=== PATIENT | male | born 1975 | race Caucasian/White ===

== ENCOUNTER 2016-07-11 16:46 | Emergency (ER) ==
[2016-07-11 16:52] VITALS: BP 158/105
[2016-07-11 17:44] LABS: URINE SOURCE CLEAN CATCH
[2016-07-11 17:48] LABS: BILIRUBIN URINE NEGATIVE (NEGATIVE); BLOOD URINE NEGATIVE (NEGATIVE); CLARITY VERY CLOUDY (CLEAR); COLOR YELLOW; GLUCOSE URINE NEGATIVE (NEGATIVE); LEUKOCYTES URINE 1+ (NEGATIVE); NITRITE URINE NEGATIVE (NEGATIVE); PROTEIN URINE NEGATIVE (NEGATIVE); SP GRAVITY URINE 1.015; UROBILINOGEN URINE NORMAL
[2016-07-11 18:01] LABS: URINE WBC <10 /HPF (<10)
[2016-07-11 18:02] LABS: URINE CAST NONE SEEN /LPF; URINE CRYSTAL NONE SEEN /HPF; URINE CULTURE PL NEEDED? YES; URINE EPITHELIAL CELLS <10 /HPF (<10)
--- NOTE | 2016-07-11 18:59 | PROVIDER DOCUMENTATION ---
HPI-General Adult - General Chief Complaint: Cold Symptoms Stated Complaint: COLD SX/N/D Time Seen by Provider: 07/11/16 18:54 Source: patient Allergies/Adverse Reactions: Patient Allergies Allergy/AdvReac Type Severity Reaction Status Date / Time Penicillins Allergy Unknown Verified 07/11/16 16:53 Home Medications: Home Medication List Medication Instructions Recorded Confirmed Last Taken Type Ketorolac [Toradol] 10 mg PO Q6H PRN PRN #20 tablet 07/11/16 Unknown Rx Levofloxacin [Levaquin] 500 mg PO DAILY #10 tablet 07/11/16 Unknown Rx Prednisone 20 mg PO BID #10 tablet 07/11/16 Unknown Rx - History of Present Illness -Gen Adult Nature of Presenting Problems: 40 year old male presents to the ER with complaint of fever, diarrhea, headache , lower back pain and dysruia x 1 day. Location of Pain/Injury: reports: face, back Onset/Duration: reports: 24 hours ago Timing: reports: still present Review of Systems - Adult - REVIEW OF SYSTEMS - ADULT Constitutional: reports: fever. denies: chills Eyes: reports: no symptoms reported Ears, Nose, Mouth & Throat: reports: no symptoms reported Cardiovascular: reports: no symptoms reported Respiratory: reports: no symptoms reported Gastrointestinal: reports: diarrhea. denies: nausea Genitourinary: reports: dysuria. denies: discharge Musculoskeletal: reports: back pain. denies: bone pain Integumentary: reports: no symptoms reported Neurological: reports: no symptoms reported Psychiatric: reports: no symptoms reported Endocrine: reports: no symptoms reported Hematologic/Lymphatic: reports: no symptoms reported Allergic/Immunologic: reports: no symptoms reported All Other Systems: Reviewed and Negative Past History - Adult - PAST MEDICAL HISTORY-ADULT Review of Records: reports: Nursing Assessment Review, Medications Reviewed - IMMUNIZATION STATUS Childhood Immunizations: See Nurse Assessment Flu Vaccine: See Nurse Assessment Physical Exam-General - CONSTITUTIONAL General Appearance: alert, no apparent distress - EYES Eyes: PERRL/EOMI, pink conjunctivae - HEAD, EARS, NOSE, MOUTH & THROAT HENMT: normocephalic/atraumatic, moist mucous membranes - NECK Neck: supple, normal inspection - RESPIRATORY Respiratory: lungs clear, no respiratory distress - CARDIOVASCULAR Cardiovascular: normal peripheral pulses, regular rate, rhythm - MUSCULOSKELETAL Back Exam: no CVA tenderness, no vertebral tenderness Extremity: normal gait, normal inspection - SKIN Integumentary: normal color, warm/dry - NEUROLOGIC Neurologic: grossly normal, no motor/sensory deficits - PSYCHIATRIC Psych/Mental Status: normal mood/affect, normal thought content, normal thought process, oriented x 3 Departure - Departure Time of Disposition Order: 18:58 DIAGNOSIS: URI (upper respiratory infection) Qualifiers: URI type: unspecified URI Qualified Code(s): J06.9 - Acute upper respiratory infection, unspecified Disposition: HOME 01 Certified Medical Emergency: Emergent Condition: Stable Additional Instructions: ED Follow Up Instructions: You have been treated by a care provider in the Emergency Department. These instructions are being provided to you so you can have an understanding of how to care for yourself upon discharge. Upon discharge from the Emergency Department, you are responsible for making arrangements for follow-up care by a physician of your choice. Take all prescribed medications as directed. Return to the Emergency Department immediately for any new or worsening symptoms. You may call the Physician Referral phone number at [phone] to obtain a list of Physicians who are taking new patients. Prescriptions: Levofloxacin [Levaquin] 500 mg PO DAILY #10 tablet Prednisone 20 mg PO BID #10 tablet Ketorolac [Toradol] 10 mg PO Q6H PRN PRN #20 tablet PRN Reason: Pain Referrals: Gabriel Dos Santos MD [STAFF PHYSICIAN] - Forms: Return to School/Parent Work Instructions: Upper Respiratory Infection, Adult, [id number], Levofloxacin tablets, Ketorolac tablets, Prednisone tablets Attestation - Scribe Verification/Attestation Scribe:: Mable Nixon Acting as Scribe for:: Kirit Mark Scribe documention review:: This chart was documented by a scribe and accurately reflects the service the provider performed and the decisions made by the provider.
== END 2016-07-11 19:13 | disposition home or self-care (01) ==
LOC: P.ED 16:46
DX: J06.9 Acute upper respiratory infection, unspecified (principal); R50.9 Fever, unspecified; R19.7 Diarrhea, unspecified; R51 Headache; M54.5 Low back pain; R30.0 Dysuria; M54.9 Dorsalgia, unspecified
CPT/HCPCS: 81001; 87088; 87804; 99283

== ENCOUNTER 2016-07-12 09:00 | Emergency (ER) ==
[2016-07-12 09:57] LABS: MANUAL DIFF NEEDED? NO
[2016-07-12 09:59] LABS: BASO% 0.2 % (0.0-0.8); EOS# 0.03 X1000 (0.0-0.7); EOS% 0.3 % (0.0-10.0); HEMATOCRIT 54.8 % (42.0-52.0); HEMOGLOBIN 18.5 g/dL (14.0-18.0); IMM GRAN# 0.02 X1000 (0.0-0.04); IMM GRAN% 0.2 % (0.0-0.5); LYMPH# 1.53 X1000 (1.2-3.4); LYMPH% 12.9 % (20.5-51.1); MCH 30.9 PG (27-31); MCHC 33.8 g/dL (33-37); MCV 91.5 FL (81-99); MONO% 9.3 % (1.7-9.3); MPV 11.3 FL (7.4-10.4); NEUT% 77.1 % (42.2-75.2); PLT 207 X1000 (130-400); RBC 5.99 XMIL (4.7-6.1)
--- NOTE | 2016-07-12 10:08 | PROVIDER DOCUMENTATION ---
HPI-Abdominal Pain/GI Problem - General Source: patient - History of Present Illness-ABD Nature of Presenting Problems: Pt is a 40 yom who came to the ED with a cc of N/V/D. Pt reports he has been having these symptoms since last night. Pt reports he is unable to keep anything down and is also having urinary retention. Abdominal Pain Onset Location: reports: RLQ Pain Radiation: reports: flank (right) Quality of Pain: reports: cramping Severity in ED: reports: mild Onset/Duration: reports: last night Timing: reports: still present Activities at Onset: reports: none Exposure to sick contacts?: No Modifying Factors: improves with: defecating, eating, vomiting Associated Symptoms: reports: diarrhea, nausea, vomiting Last BM: unsure Dark Stools Present?: reports: none noticed Rectal Bleeding: reports: none Rectal Pain: reports: none Bruising or Bleeding Gums?: No Similar Symptoms Previously?: No Recently seen or treated by another doctor?: No <Mikki Morrow - Last Filed: 07/12/16 10:02> <Peter Matute - Last Filed: 07/12/16 11:07> <Tammie Nunez - Last Filed: 07/12/16 12:55> - General Chief Complaint: Flank Pain Stated Complaint: RIGHT SIDE PAIN,DIARRHEA Time Seen by Provider: 07/12/16 09:28 Allergies/Adverse Reactions: Patient Allergies Allergy/AdvReac Type Severity Reaction Status Date / Time Penicillins Allergy Unknown Verified 07/11/16 16:53 Home Medications: Home Medication List Medication Instructions Recorded Confirmed Last Taken Type Ciprofloxacin HCl [Cipro] 500 mg PO BID #14 tablet 07/12/16 Unknown Rx Ondansetron [Zofran] 4 mg PO Q6H PRN PRN #15 tablet 07/12/16 Unknown Rx Review of Systems - Adult - REVIEW OF SYSTEMS - ADULT Constitutional: reports: chills, fever. denies: fatique, weight gain Eyes: reports: no symptoms reported Ears, Nose, Mouth & Throat: reports: no symptoms reported Cardiovascular: reports: no symptoms reported Respiratory: reports: no symptoms reported Gastrointestinal: reports: abdominal pain (RLQ), diarrhea, nausea, vomiting. denies: hematemesis, frequent heartburn, rectal bleeding Genitourinary: reports: no symptoms reported Musculoskeletal: denies: frequent leg cramps, joint swelling Integumentary: reports: no symptoms reported Neurological: reports: no symptoms reported Psychiatric: reports: no symptoms reported Endocrine: reports: no symptoms reported Hematologic/Lymphatic: reports: no symptoms reported Allergic/Immunologic: reports: no symptoms reported All Other Systems: Reviewed and Negative <Mikki Morrow - Last Filed: 07/12/16 10:02> Past History - Adult - PAST MEDICAL HISTORY-ADULT Review of Records: reports: Old Records Reviewed, Nursing Assessment Review Major Childhood Illnesses: reports: denies history Cardiovascular: reports: denies history Respiratory: reports: denies history Gastrointestinal: reports: denies history Obstetrical/Gynecological: reports: denies history Genitourinary: reports: denies history Musculoskeletal: reports: denies history Neurological: reports: denies history Endocrine/Immune: reports: denies history Other Conditions: reports: denies history - IMMUNIZATION STATUS Childhood Immunizations: See Nurse Assessment Flu Vaccine: See Nurse Assessment - FAMILY HISTORY Family History: reviewed, not pertinent <Mikki Morrow - Last Filed: 07/12/16 10:02> Physical Exam-General - PHYSICAL EXAM-ADULT Initial Vital Signs Reviewed: Yes - CONSTITUTIONAL General Appearance: alert - EYES Eyes: PERRL/EOMI, pink conjunctivae - HEAD, EARS, NOSE, MOUTH & THROAT HENMT: normocephalic/atraumatic, moist mucous membranes, normal ENT inspection, TMs normal, pharynx normal - NECK Neck: non-tender - RESPIRATORY Respiratory: chest non-tender, lungs clear - CARDIOVASCULAR Cardiovascular: normal peripheral pulses, regular rate, rhythm - GASTROINTESTINAL (ABDOMEN) Abdominal Exam: normal bowel sounds, tenderness (RLQ and Right flank pain) - MUSCULOSKELETAL Back Exam: normal inspection Extremity: normal range of motion - SKIN Integumentary: normal color, normal turgor - NEUROLOGIC Neurologic: grossly normal - PSYCHIATRIC Psych/Mental Status: normal mood/affect, normal thought content, normal thought process, oriented x 3 <Mikki Morrow - Last Filed: 07/12/16 10:02> Progress - PLAN OF CARE/RESULTS Progress/Plan/Lab Results: Vital Signs - 24 hr 07/12/16 09:15 Temperature 98.3 F Pulse Rate 104 H Respiratory 18 Rate Blood Pressure 165/92 O2 Sat by Pulse 100 Oximetry Orders Category Date Time Status NPO Diet 07/12/16 09:29 Active AMYLASE [CHEM] Stat Lab 07/12/16 09:44 Received CBC WITH ELECTRONIC DIFF [HEME] Stat Lab 07/12/16 09:44 Completed COMPREHENSIVE METABOLIC PANEL [CHEM] Stat Lab 07/12/16 09:44 Received LIPASE [CHEM] Stat Lab 07/12/16 09:44 Received UA NIMS W/REFLEX CULT [URINALYSIS] Stat Lab 07/12/16 09:19 Uncollected Laboratory Tests 07/12/16 09:44 WBC 11.85 H RBC 5.99 Hgb 18.5 H Hct 54.8 H MCV 91.5 MCH 30.9 MCHC 33.8 RDW Std Deviation 13.5 Plt Count 207 MPV 11.3 H Immature Gran % (Auto) 0.2 Neut % (Auto) 77.1 H Lymph % (Auto) 12.9 L [place] % (Auto) 9.3 Eos % (Auto) 0.3 Baso % (Auto) 0.2 Immature Gran # (Auto) 0.02 Neut # (Auto) 9.15 H Lymph # (Auto) 1.53 [place] # (Auto) 1.10 H Eos # (Auto) 0.03 Baso # (Auto) 0.02 <Mikki Morrow - Last Filed: 07/12/16 10:02> - CHANGE OF SHIFT REPORT (ED Provider) Report Given and Care Transferred to:: Dr. Nunez (ER MD Fellow) Time of Transfer: 11:07 Items Pending: Labs, CT/MRI Results Tentative Impression of Patient: R FLANK PAIN, CONSIDER GASTROENTERITIS, APPENDICITIS, DIVERTICULITIS <Peter Matute - Last Filed: 07/12/16 11:07> Departure <Mikki Morrow - Last Filed: 07/12/16 10:02> <Peter Matute - Last Filed: 07/12/16 11:07> - Departure Time of Disposition Order: 12:51 Certified Medical Emergency: Emergent <Tammie Nunez - Last Filed: 07/12/16 12:55> - Departure DIAGNOSIS: Gastroenteritis Disposition: HOME 01 Condition: Stable Additional Instructions: Rest. Clear liquid diet- like gatorade, broth. Gradually increase diet if pain resolved and tolerating fluids. Take zofran if needed for nausea and vomiting. Take cipro antibiotics twice a day for 1 week. Follow up with Dr if not better 2 days. Return to emergency department if unable to keep down fluids or if worsening abdominal pain. No work for 2 days ED Follow Up Instructions: You have been treated by a care provider in the Emergency Department. These instructions are being provided to you so you can have an understanding of how to care for yourself upon discharge. Upon discharge from the Emergency Department, you are responsible for making arrangements for follow-up care by a physician of your choice. Take all prescribed medications as directed. Return to the Emergency Department immediately for any new or worsening symptoms. You may call the Physician Referral phone number at [phone] to obtain a list of Physicians who are taking new patients. Prescriptions: Ciprofloxacin HCl [Cipro] 500 mg PO BID #14 tablet Ondansetron [Zofran] 4 mg PO Q6H PRN PRN #15 tablet PRN Reason: Vomiting Attestation - Scribe Verification/Attestation Scribe:: Mikki Morrow Acting as Scribe for:: Peter Matute Scribe documention review:: This chart was documented by a scribe and accurately reflects the service the provider performed and the decisions made by the provider. <Mikki Morrow - Last Filed: 07/12/16 10:02> - Physician/ TROY Attestation Patient care was provided by Advanced Practice Provider:: Yes Advanced Practice Provider:: Peter Matute Advanced Practice Provider documentation review:: The Mid-level provider documentation, treatment plan and medical decision making was reviewed by the physician who agrees with all treatment and medical decision making by the MLP. The physician spent face to face time with patient:: Yes Advanced Practice Provider documentation review:: The physician spent face to face time with this patient and agrees with all MLP documentation, treatment, and medical decision making by the MLP. See provider notes for further information. <Peter Matute - Last Filed: 07/12/16 11:07> Physician Attestation - Physician Attestation I, the provider, attest to the following statement:: Peter Matute Physician documentation Attestation:: This documentation recorded by the scribe accurately reflects the service I personally performed and the decisions made by me. <Peter Matute - Last Filed: 07/12/16 11:07>
[2016-07-12] MEDS ORDERED: NS 1,000 ML IV ONE (10:13)
[2016-07-12 10:20] LABS: AGAP 14; ALBUMIN 4.6 g/dL (3.5-5.0); ALKALINE PHOSPHATASE 109 U/L (32-122); AMYLASE 40 U/L (20-200); BUN 10 mg/dL (8-22); CALCIUM 9.1 mg/dL (8.8-10.2); CHLORIDE 101 mmol/L (98-107); COSMO 277; GOT 19 U/L (10-34); GPT 23 U/L (10-44); LIPASE 23 U/L (13-60); POTASSIUM 4.2 mmol/L (3.5-5.1); SODIUM 138 mmol/L (136-145); TCO2 23 mmol/L (25-35); TOTAL BILIRUBIN 0.44 mg/dL (0.20-1.00)
[2016-07-12 10:21] LABS: URINE CULTURE NEEDED? NO; URINE MICRO REVIEW NEEDED? NO; URINE SOURCE CLEAN CATCH
[2016-07-12] MEDS ORDERED: ZOFRAN IV ONE (10:21)
[2016-07-12 10:27] LABS: BILIRUBIN URINE NEGATIVE (NEGATIVE); BLOOD URINE TRACE (NEGATIVE); COLOR ORANGE; GLUCOSE URINE NEGATIVE (NEGATIVE); LEUKOCYTES URINE NEGATIVE (NEGATIVE); NITRITE URINE NEGATIVE (NEGATIVE); PROTEIN URINE 100 mg/dL (NEGATIVE); SP GRAVITY URINE 1.028; TURBIDITY URINE TURBID (CLEAR); UROBILINOGEN URINE NORMAL (NORMAL)
[2016-07-12 10:28] LABS: UR EPITHELIAL CELLS <10 /HPF (<10); URINE BACTERIA NEGATIVE /HPF; URINE RBC <10 /HPF (<10); URINE WBC <10 /HPF (<10)
[2016-07-12 12:27] VITALS: BP 149/95
--- NOTE | 2016-07-12 12:45 | Diag Imaging Result Document ---
PROCEDURE NAME: CT ABD/PELVIS W/ IV CONT ONLY - 07/12/2016 CT ABDOMEN AND PELVIS WITH IV CONTRAST: COMPARISON: None available. FINDINGS: There are multiple loops of small bowel exhibiting mild wall thickening and there are air-fluid levels. This effects essentially the entire small bowel. This is consistent with nonspecific enteritis, probably infectious or inflammatory. There is no evidence of bowel obstruction, however. The appendix is normal. There is liquid stool in the colon and rectum. There are few colonic diverticula, but there is no evidence of diverticulitis. There is trace free fluid layering in the pelvis. The remainder of the solid viscera of the abdomen and pelvis and the remainder of the GI tract is essentially unremarkable. IMPRESSION: 1. Diffuse small-bowel wall thickening consistent with nonspecific enteritis, likely infectious or inflammatory. 2. Other incidental/nonacute findings detailed above. [facility]
== END 2016-07-12 13:11 | disposition home or self-care (01) ==
LOC: ED 09:00
DX: K52.9 Noninfective gastroenteritis and colitis, unspecified (principal); R11.2 Nausea with vomiting, unspecified; R19.7 Diarrhea, unspecified; R33.9 Retention of urine, unspecified; R10.31 Right lower quadrant pain; R10.9 Unspecified abdominal pain; R50.9 Fever, unspecified; R10.813 Right lower quadrant abdominal tenderness; R10.819 Abdominal tenderness, unspecified site
CPT/HCPCS: 36415; 74177; 80053; 81001; 82150; 83690; 85025; 96374; J2405; J7030; Q9967

== ENCOUNTER 2019-08-15 15:14 | Observation (INO) ==
[2019-08-15] MEDS ORDERED: NORFLEX IV ONE (15:28)
[2019-08-15] MEDS ORDERED: NS 500 ML IV ONE (15:29)
[2019-08-15] MEDS ORDERED: BOOSTRIX VACCINE IM ONE (15:30)
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
--- NOTE | 2019-08-15 16:35 | Diag Imaging Result Doc PS360 ---
EXAM: KNEE 3 VIEWS RIGHT INDICATION: TRAUMA TECHNIQUE: 3 views COMPARISON: None. FINDINGS: There is no discrete fracture, dislocation, or significant intrinsic osseous lesion. The visualized joint spaces are essentially unremarkable. The surrounding soft tissues are essentially unremarkable. IMPRESSION: No evidence of acute osseous abnormality. Electronically signed by Peter Mcleod 08/15/2019 4:33 PM
--- NOTE | 2019-08-15 16:35 | Diag Imaging Result Doc PS360 ---
EXAM: SHOULDER-RIGHT INDICATION: TRAUMA TECHNIQUE: 3 views COMPARISON: None. FINDINGS: There is no discrete fracture, dislocation, or significant intrinsic osseous lesion. The visualized joint spaces are essentially unremarkable. The surrounding soft tissues are essentially unremarkable. IMPRESSION: No evidence of acute osseous abnormality. Electronically signed by Peter Mcleod 08/15/2019 4:32 PM
[2019-08-15] MEDS ORDERED: XYLOCAINE 1%/EPI 1:100,000 INJ ONE (16:39)
[2019-08-15 16:43] LABS: BASO# 0.04 X1000 (0.0-0.2); BASO% 0.6 % (0.0-0.8); EOS# 0.37 X1000 (0.0-0.7); EOS% 5.5 % (0.0-10.0); HEMATOCRIT 44.3 % (42.0-52.0); HEMOGLOBIN 14.4 g/dL (14.0-18.0); LYMPH# 1.83 X1000 (1.2-3.4); LYMPH% 27.2 % (20.5-51.1); MCH 29.9 PG (27-31); MCHC 32.5 g/dL (33-37); MCV 91.9 FL (81-99); MONO# 0.52 X1000 (0.11-0.59); MONO% 7.7 % (1.7-9.3); MPV 11.1 FL (7.4-10.4); NEUT# 3.97 X1000 (1.4-6.5); PLT 162 X1000 (130-400); RBC 4.82 XMIL (4.7-6.1); RDW 14.1 % (11.5-14.5); WBC 6.73 X1000 (4.8-10.8)
--- NOTE | 2019-08-15 16:44 | Diag Imaging Result Doc PS360 ---
EXAM: CT HEAD/C-SPINE W/O CONTRAST INDICATION: TRAUMA TECHNIQUE: This exam was performed using automated exposure control, adjustment of mA or kV according to patient size, and/or use of iterative reconstruction technique. COMPARISON: 02/21/2017 FINDINGS: Head: There is no definite acute infarct given the limited sensitivity of CT versus MRI. There is no discrete intracranial mass, mass effect, or intracranial hemorrhage. There is a small laceration at the anterior aspect of the scalp on the left. The calvaria is intact. There is extensive pansinus mucosal disease. This is also seen on the previous study. C-spine: There is degenerative disc disease at C5-6 with marginal osteophyte formation. It is causing mild central canal and left neuroforaminal narrowing that is similar to the previous study. Otherwise, there is no discrete fracture, subluxation, or intrinsic osseous lesion. The surrounding soft tissues are essentially unremarkable. IMPRESSION: 1.No evidence of acute intracranial pathology. 2.Degenerative changes at C5-6 but no evidence of fracture or other definite acute C-spine injury. Electronically signed by Peter Mcleod 08/15/2019 4:42 PM
--- NOTE | 2019-08-15 16:47 | Diag Imaging Result Doc PS360 ---
EXAM: CT THORAX/ABD/PELVIS W/CON INDICATION: TRAUMA TECHNIQUE: This exam was performed using automated exposure control, adjustment of mA or kV according to patient size, and/or use of iterative reconstruction technique. COMPARISON: CT abdomen and pelvis dated 12/09/2017 FINDINGS: CHEST: There is mild dependent atelectasis mainly involving the lower lobes bilaterally. There is a calcified granuloma in the anterior segment of the right upper lobe. The lungs are essentially clear, otherwise. There is no evidence of pulmonary contusion. There is no pleural fluid collection and no pneumothorax. There is no cardiomegaly. There is no abnormal mediastinal fluid collection. There is no evidence of thoracic great vessel injury. The bony structures of the thorax are grossly intact. ABDOMEN/PELVIS: The liver, gallbladder, spleen, pancreas, adrenal glands, kidneys, and urinary bladder are grossly unremarkable. There is no evidence of bowel wall thickening or bowel obstruction. There is no evidence of appendicitis. The remainder of the GI tract is essentially unremarkable. No focal inflammatory changes, free abdominal gas, or free fluid is appreciated. There is no evidence of acute osseous abnormality involving the abdomen or pelvis. IMPRESSION: 1.Mild dependent subsegmental atelectasis mainly involving the lower lung lobes bilaterally. No evidence of acute chest pathology, otherwise. 2.No evidence of acute pathology involving the abdomen or pelvis. Electronically signed by Peter Mcleod 08/15/2019 4:45 PM
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
[2019-08-15 17:09] LABS: AGAP 9; ALB/GLOB RATIO 1.9; ALBUMIN 4.1 g/dL (3.5-5.0); ALKALINE PHOSPHATASE 105 U/L (32-122); BUN 16 mg/dL (8-22); CALCIUM 9.1 mg/dL (8.8-10.2); CHLORIDE 100 mmol/L (98-107); COSMO 274; CREATININE 0.8 mg/dL (0.7-1.2); ESTIMATED GFR > 60; GLUCOSE 106 mg/dL (70-104); GOT 16 U/L (10-34); GPT 12 U/L (10-44); POTASSIUM 4.4 mmol/L (3.5-5.1); SODIUM 136 mmol/L (136-145); TCO2 27 mmol/L (25-35); TOTAL BILIRUBIN 0.15 mg/dL (0.20-1.00); TOTAL PROTEIN 6.3 g/dL (6.3-8.3)
[2019-08-15 18:15] LABS: URINE SOURCE CLEAN CATCH
[2019-08-15 18:19] LABS: BILIRUBIN URINE NEGATIVE (NEGATIVE); BLOOD URINE SMALL (NEGATIVE); COLOR STRAW; GLUCOSE URINE NEGATIVE (NEGATIVE); KETONE URINE NEGATIVE (NEGATIVE); LEUKOCYTES URINE NEGATIVE (NEGATIVE); NITRITE URINE NEGATIVE (NEGATIVE); PROTEIN URINE NEGATIVE (NEGATIVE); SP GRAVITY URINE 1.025; TURBIDITY URINE CLEAR (CLEAR); UR EPITHELIAL CELLS <10 /HPF (<10); URINE BACTERIA NEGATIVE /HPF; URINE RBC <10 /HPF (<10); URINE WBC <10 /HPF (<10); UROBILINOGEN URINE NORMAL (NORMAL)
[2019-08-15 18:31] LABS: UR AMPHETAMINES QUAL NONE DETECTED (NONE DETECT); UR BARBITUATES QUAL NONE DETECTED (NONE DETECT); UR BENZODIAZEPIN QUAL PRESUMPTIVE POSITIVE (NONE DETECT); UR CANNABINOIDS QUAL NONE DETECTED (NONE DETECT); UR COCAINE QUAL NONE DETECTED (NONE DETECT); UR METHADONE QUAL NONE DETECTED (NONE DETECT); UR OPIATES QUAL NONE DETECTED (NONE DETECT); UR OXYCODONE QUAL NONE DETECTED (NONE DETECT); UR PCP QUAL NONE DETECTED (NONE DETECT)
[2019-08-15] MEDS ORDERED: ZOFRAN IV PRN (22:17)
[2019-08-15] MEDS: TYLENOL PO PRN (22:39)
[2019-08-15] MEDS ORDERED: NICODERM PATCH TD PRN (22:53)
[2019-08-15] MEDS ORDERED: NS 1,000 ML IV SCH (23:00)
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
[2019-08-16] MEDS: TYLENOL PO PRN ×2 (06:29→12:59)
[2019-08-16 06:52] LABS: BASO# 0.01 X1000 (0.0-0.2); BASO% 0.2 % (0.0-0.8); EOS# 0.24 X1000 (0.0-0.7); EOS% 4.1 % (0.0-10.0); HEMATOCRIT 44.4 % (42.0-52.0); HEMOGLOBIN 14.5 g/dL (14.0-18.0); LYMPH# 2.14 X1000 (1.2-3.4); LYMPH% 36.3 % (20.5-51.1); MCH 30.5 PG (27-31); MCHC 32.7 g/dL (33-37); MCV 93.5 FL (81-99); MONO# 0.56 X1000 (0.11-0.59); MONO% 9.5 % (1.7-9.3); MPV 11.5 FL (7.4-10.4); NEUT# 2.95 X1000 (1.4-6.5); NEUT% 49.9 % (42.2-75.2); PLT 162 X1000 (130-400); RBC 4.75 XMIL (4.7-6.1); RDW 14.5 % (11.5-14.5)
[2019-08-16 07:02] LABS: AGAP 10; BUN 13 mg/dL (8-22); CALCIUM 8.8 mg/dL (8.8-10.2); CHLORIDE 102 mmol/L (98-107); COSMO 279; CREATININE 0.8 mg/dL (0.7-1.2); ESTIMATED GFR > 60; GLUCOSE 88 mg/dL (70-104); SODIUM 140 mmol/L (136-145); TCO2 28 mmol/L (25-35)
[2019-08-16 11:45] VITALS: BP 123/66
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
== END 2019-08-16 13:27 | disposition home or self-care (01) ==
LOC: ED 15:14 → INTOOBSV 21:59 → 4N 21:59 → SUATTDRO 21:59
PROVIDERS: ATTEND Internal Medicine